=== PATIENT | female | born 1975 | race Caucasian/White ===

== ENCOUNTER 2017-06-16 16:42 | Outpatient (RCR) | payer BC ==
[~2017-06-16 16:42] MED LIST: ACE3 PO; ACE325 PO; ACE500 PO; BIRTH CONTROL PILL PO; CEF300 PO; CEP250 PO; CEP500 PO; CIPR-212 PO; CYC10 PO; ESOM40CA42 PO; FAM20 PO; IBU600 PO; IBUP-1618 PO; KET10 PO; LOR5 PO; METO25TA23 PO; METO25TA91 PO; NIF10 PO; OND4 PO; ONDA4TAB PO; PER PO; PHENA200 PO; PREN-67 PO; PRO25 PO
== END 2017-07-05 14:17 | disposition home or self-care (01) ==
LOC: SPU 16:42
DX: N30.21 Other chronic cystitis with hematuria (principal)
CPT/HCPCS: 51701; 81001; 87088